=== PATIENT | male | born 1980 | race Caucasian/White ===

== ENCOUNTER 2018-05-24 10:07 | Emergency (ER) | payer OTHER ==
[~2018-05-24] VITALS: Ht 175.3 cm; Wt 67.1 kg
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
[2018-05-24] MEDS ORDERED: NEOMY/BACITRA/POLYMYXIN B OINT UD PACKET TP ONE ×2 (10:45→10:46)
[2018-05-24] MEDS ORDERED: TDAP DIPH,PERTUSS,TET VAC/PF 0.5 ML DISP.SYRIN IM ONE ×2 (10:45→10:46)
--- NOTE | 2018-05-24 11:30 | NUR ---
DPatient discharged to home in stable conditon. Written and verbal after care instructions given. Patient verbalizes understanding of instructions. PT D/C W/ PRESCRIPTIONS. ALL BELONGINGS W/ PT. PT SELF-AMBULATED W/O DIFFICULTY. FINGER SPLINT APPLIED TO R INDEX FINGER, PMSC INTACT AND NORMAL, CAP REFILL < 3 SECS POST SPLINT APPLICATION.
[2018-05-24 11:31] VITALS: BP 133/72
== END 2018-05-24 11:45 | disposition home or self-care (01) ==
LOC: ER 10:07
DX: S61.210A Laceration without foreign body of right index finger without damage to nail, initial encounter (principal); S61.237A Puncture wound without foreign body of left little finger without damage to nail, initial encounter; W54.0XXA Bitten by dog, initial encounter; Y93.89 Activity, other specified; Y92.89 Other specified places as the place of occurrence of the external cause; Y99.8 Other external cause status
CPT/HCPCS: 73140; 90715; A4217; A4663